=== PATIENT | female | born 1955 | race Caucasian/White ===

== ENCOUNTER 2022-06-13 19:40 | Inpatient (IN) ==
[2022-06-13] MEDS ORDERED: IOPAMIDOL 100 ML BOTTLE IV ONE (19:41)
[2022-06-13] MEDS ORDERED: 0.9 % SODIUM CHLORIDE 1,000 ML IV ONE (19:47)
[2022-06-13] MEDS ORDERED: KETOROLAC 30 MG/ML VIAL IV ONE (19:59)
[2022-06-13] MEDS ORDERED: fentaNYL 100 MCG/2 ML VIAL IV ONE (19:59)
[2022-06-13] MEDS ORDERED: ONDANSETRON 4 MG/2 ML VIAL IV ONE (19:59)
--- NOTE | 2022-06-13 20:02 | Emergency Department Note ---
Abdominal Pain HPI General Chief Complaint: Abdominal Pain Stated Complaint: abdominal pain Time Seen by Provider: 06/13/22 19:47 Source: patient Mode of arrival: ambulatory Limitations: no limitations History of Present Illness HPI Narrative: Narrative: Patient presents ED with complaints of abdominal pain x1 hour prior to arrival. Pain is rated 10/10. She points to her right upper quadrant area and states it radiates up into her chest. She reports associated nausea and vomiting. Denies fever, chills, jose a trauma, shortness of breath, heart palpitation, pain rating to her left arm or neck, hematemesis, melena, dyschezia, diarrhea, dysuria, hematuria, urinary frequency. Patient denies any other alleviating or aggravating factors. Related Data Previous Rx's Medication Instructions Recorded methocarbamol 500 mg tablet 1,000 mg PO QHS PRN Back spasm #60 05/07/21 tabs diltiazem HCl 180 mg capsule,24 180 mg PO QDAY #90 caps 02/20/22 hr,extended release fluoxetine 40 mg capsule 40 mg PO QDAY #90 caps 02/20/22 losartan 100 mg tablet 100 mg PO QDAY #90 tabs 02/20/22 Allergies Allergy/AdvReac Type Severity Reaction Status Date / Time egg Allergy Mild cough Verified 05/13/22 14:06 Penicillins Allergy Unknown rash Verified 05/13/22 14:06 Review of Systems ROS ROS Narrative: Narrative: All systems ED: reviewed and negative except as stated. [facility] Narrative Patient History Narrative: Narrative: Medical/Surgical/Family History All Active Problems (Updated 06/13/22 @ 22:57 by Greyson Fay DO) Pancreatitis (Acute) Toe pain, bilateral (Acute) Achilles tendinitis of right lower extremity (Acute) Trigger finger of right hand (Acute) Laceration (Acute) Conjunctivitis (Acute) Left-sided chest pain (Chronic) Shortness of breath (Chronic) Acute dyspnea (Chronic) Pleural effusion (Chronic) Pain and swelling of right lower extremity (Chronic) Localized swelling of right lower leg (Chronic) Vaping nicotine dependence, tobacco product (Chronic) History of smoking 30 or more pack years (Chronic) Hypersomnia (Chronic) Internal bleeding hemorrhoids (Chronic) Diarrhea (Chronic) Hair loss (Chronic) Joint pain (Chronic) Stroke (Chronic) Microscopic colitis (Chronic) GERD (gastroesophageal reflux disease) (Chronic) Cataracts, bilateral (Chronic) Atrial fibrillation (Chronic) Rectal bleeding (Chronic) Paroxysmal atrial fibrillation (Chronic) Pleural effusion (Chronic) Diastolic dysfunction (Chronic) 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) Hyperlipidemia (Chronic) Hypertension (Chronic) Depression (Chronic) Medical History Acute dyspnea Likely recurrent pleural effusion Chest x-ray and likely repeat Thora Work-up ongoing for etiology of pleural effusions Atrial fibrillation Cataracts, bilateral Chronic bilateral low back pain with sciatica Uses methocarbamol as needed Depression Diarrhea Chronic, intermittent Patient states most recent diagnosis regarding this is ulcerative colitis Declined steroids for treatment Avoiding lactose did help for the last 6 months, but simply reintroduce lactose to her diet, and has been having diarrhea for about 3 weeks Continue Imodium as needed. Avoid lactose. We will request GI records Diastolic dysfunction Diagnosed on 2017, per patient Well compensated GERD (gastroesophageal reflux disease) Hair loss TSH within normal limits in July. We will repeat. We will also check iron studies. Consider dermatology referral History of lipoma (~2000) History of smoking 30 or more pack years Hyperlipidemia Lipitor 10 mg daily Check lipid panel Hypersomnia Lives alone Sleep study ordered, but the sleep lab canceled until she sees Dr. Barlow in consultation Hypertension Internal bleeding hemorrhoids Recent CBC within normal limits Start Anusol suppositories Request GI records Joint pain Multiple joints. Does not sound inflammatory, more likely osteoarthritis. Left-sided chest pain Localized swelling of right lower leg Microscopic colitis Pain and swelling of right lower extremity Paroxysmal atrial fibrillation Pleural effusion Exudative Asymptomatic since recent thoracentesis Possibly secondary to ulcerative colitis Patient will report if dyspnea returns Pleural effusion 3 pleural effusions requiring thoracentesis in less than 3 months. Another Thora is scheduled for tomorrow. Exudative but no specific findings none pleural fluid studies Echocardiogram tomorrow Pulmonology referral, but patient not scheduled till January -pulmonology is recommending [id number], collagen vascular disease work-up, and fungal serologies which we will order. They then state referral to CT surgery for thoracoscopy may be indicated based on the results of the above labs. Rectal bleeding Shortness of breath Stroke Vaping nicotine dependence, tobacco product Encouraged to quit. She plans to do so. Surgical History History of cataract extraction (~2011) History of colonoscopy (10/04/14) 07/04/10 History of partial hysterectomy (~2000) History of repair of ACL (~2005) Cadaver graft Left Knee History of tonsillectomy (~1958) History of total knee replacement (TKR) (~2016) Right knee Family History Sister Breast cancer Half Sister Cervical cancer Half Sister High blood pressure Half Sister Diabetes mellitus, type II Father , Age 84 No problems noted. Mother , Age 93 No problems noted. Social History Smoking Status: Current every day smoker and Former smoker Alcohol Intake Frequency: does not drink Substance Use: marijuana Exam Narrative Narrative: Narrative: General Limitations: no limitations General appearance: Absent in distress ENT ENT: Present normal oropharynx and mucous membranes moist Chest Chest: Present normal inspection; Absent tenderness Respiratory Respiratory: Present normal lung sounds bilaterally; Absent respiratory distress Cardiovascular Cardiovascular: Present regular rate and normal rhythm Adbominal Abdominal: Present soft, tenderness and normal bowel sounds Expanded Abdominal Abdominal Tenderness: Present RUQ and epigastrium Extremities Extremities: Present normal capillary refill Back Back: Absent CVA tenderness (R) or CVA tenderness (L) Neurological Neurological: Present oriented X3 and normal gait Psychiatric Psychiatric: Present normal affect and normal mood Skin Skin: Present warm (WNL) and intact Course Course Course Narrative: Patient was evaluated for abdominal pain. Patient was also having chest pain so an EKG was obtained unremarkable. Troponin was negative ruling out DC. Patient having pain in right upper quadrant so an ultrasound was obtained and was negative for gallstones but did show some gallbladder sludge and some mild common bile duct dilatation. The pancreas was obscured. Labs revealed that patient had elevated amylase and lipase suggestive of pancreatitis. CT abdomen pelvis obtained with image of myself which did confirm pancreatitis and ruled out small bowel obstruction. Patient was bolused IV fluids and started on a bolus drip. She was given IV fentanyl and Toradol for her discomfort. She was also given some IV Zofran. Patient's pain greatly improved she became comfortable enough to where she was able to fall asleep. Due to patient's ongoing pain recommend the patient be admitted to the hospital. Case discussed with hospitalist who has agreed to admit the patient. Plan of care was discussed with patient she expressed verbal understanding and agreement Reevaluation(s) Reevaluation #1: Patient remains hemodynamically stable. No new complaints at this time Time: 21:00 Consultations Consultation #1: Case discussed with hospitalist, Dr. Delarosa, who has graciously excepted to admit patient to the hospital. Time: 23:03 Vital Signs Vital signs: Vital Signs Temperature 98.2 F 06/13/22 19:41 Pulse Rate 93 H 06/13/22 19:41 Respiratory Rate 17 06/13/22 19:41 Blood Pressure 180/135 06/13/22 19:41 Pulse Oximetry (%) 97 06/13/22 19:41 Oxygen Delivery Method 06/13/22 19:41 Temperature 98.2 F 06/13/22 19:41 Pulse Rate 81 06/13/22 22:20 Respiratory Rate 21 06/13/22 22:20 Blood Pressure 160/138 06/13/22 20:07 Pulse Oximetry (%) 94 06/13/22 22:20 Oxygen Delivery Method 06/13/22 19:41 MDM MDM Narrative Medical decision making narrative: Narrative: Differential Diagnosis Differential Diagnosis: Pancreatitis, hepatitis, cholecystitis, small bowel obstruction Medical Records Medical records reviewed: Yes I reviewed the patient's medical records. Lab Data Lab results reviewed: Yes I reviewed the patient's lab results. Result diagrams: 06/13/22 20:01 Labs: Lab Results 06/13/22 06/13/22 06/13/22 Range/Units 19:50 19:52 20:01 WBC 7.2 (4.5-11.0) K/mcL RBC 4.84 (3.59-5.38) M/mcL Hgb 14.5 (11.2-15.7) g/dL Hct 44.2 (34.1-44.9) % POC Hct 46.0 (36-48) MCV 91.3 (80.0-100.0) fL MCH 30.0 (26.0-34.0) pg MCHC 32.8 (31.0-36.0) g/dL RDW 13.5 (11.5-14.5) % Plt Count 283 (140-440) K/mcL MPV 10.7 (8.8-12.5) fL Immature Gran % (Auto) 0.1 (0.0-0.5) % Neut % (Auto) 56.9 (38.0-78.0) % Lymph % (Auto) 28.8 (15.5-49.0) % Frio % (Auto) 11.3 (1.0-12.0) % Eos % (Auto) 2.5 (0.0-7.0) % Baso % (Auto) 0.4 (0.0-2.0) % Lymph # (Auto) 2.06 (1.50-4.80) K/mcL Frio # (Auto) 0.81 (0.10-0.90) K/mcL Eos # (Auto) 0.18 (0.00-0.70) K/mcL Baso # (Auto) 0.03 (0.00-0.30) K/mcL Immature Gran # 0.01 (0.00-0.05) K/mcl Absolute Neutrophils 4.07 (1.80-8.00) K/mcL POC Sodium 139 (133-145) POC Potassium 3.9 (3.3-5.1) POC Chloride 108 (96-108) POC Total CO2 25.0 (22-30) POC BUN 24 H (6-20) POC Creatinine 1.0 (0.6-1.2) POC Glucose 100 (70-105) POC WB Ioniz Calcium 1.16 (1.16-1.32) Total Bilirubin (0.1-1.0) mg/dL Direct Bilirubin (0-0.3) mg/dL AST (<32) U/L ALT (<40) U/L Alkaline Phosphatase (39-117) U/L Total Protein (5.9-8.4) gm/dL Albumin (3.2-5.2) gm/dL Globulin (2.2-3.7) gm/dL Amylase (28-100) U/L POC Troponin I < 0.02 (0.00-0.08) 06/13/22 Range/Units 20:01 WBC (4.5-11.0) K/mcL RBC (3.59-5.38) M/mcL Hgb (11.2-15.7) g/dL Hct (34.1-44.9) % POC Hct (36-48) MCV (80.0-100.0) fL MCH (26.0-34.0) pg MCHC (31.0-36.0) g/dL RDW (11.5-14.5) % Plt Count (140-440) K/mcL MPV (8.8-12.5) fL Immature Gran % (Auto) (0.0-0.5) % Neut % (Auto) (38.0-78.0) % Lymph % (Auto) (15.5-49.0) % Frio % (Auto) (1.0-12.0) % Eos % (Auto) (0.0-7.0) % Baso % (Auto) (0.0-2.0) % Lymph # (Auto) (1.50-4.80) K/mcL Frio # (Auto) (0.10-0.90) K/mcL Eos # (Auto) (0.00-0.70) K/mcL Baso # (Auto) (0.00-0.30) K/mcL Immature Gran # (0.00-0.05) K/mcl Absolute Neutrophils (1.80-8.00) K/mcL POC Sodium (133-145) POC Potassium (3.3-5.1) POC Chloride (96-108) POC Total CO2 (22-30) POC BUN (6-20) POC Creatinine (0.6-1.2) POC Glucose (70-105) POC WB Ioniz Calcium (1.16-1.32) Total Bilirubin 0.2 (0.1-1.0) mg/dL Direct Bilirubin < 0.2 (0-0.3) mg/dL AST 19 (<32) U/L ALT 14 (<40) U/L Alkaline Phosphatase 88 (39-117) U/L Total Protein 7.4 (5.9-8.4) gm/dL Albumin 4.3 (3.2-5.2) gm/dL Globulin 3.1 (2.2-3.7) gm/dL Amylase 1205 H (28-100) U/L POC Troponin I (0.00-0.08) Radiology Data Radiology results reviewed: Yes I reviewed the patient's radiology results. Radiology results narrative: Right upper quadrant ultrasound obtained with image reviewed myself negative for gallstones but does have gallbladder sludge. CT abdomen pelvis obtained with image reviewed myself which shows a pancreatitis EKG Data EKG #1: EKG attestation: Yes I reviewed and interpreted this EKG. EKG shows normal: sinus rhythm Rhythm: NSR [place]/QRS: normal Heart block present: None ST segment elevation in: None ST segment depression in: None QTc: prolonged QRS morphology: Present normal Interpretation: no acute changes Core Measures AMI Core Measures Followed: Yes Discharge Plan Patient/Caregiver Discharge Instructions Pt seen by [employer] APPRENTICE/PA only: No Clinical Impression: Pancreatitis Patient Disposition: Xfer As Outpt/Obs ([facility]) Condition: Good Follow up with: Brannon Caicedo DO [Primary Care Provider] - Prescriptions: No Action methocarbamol 500 mg tablet 1,000 mg PO QHS PRN (Reason: Back spasm) Qty: 60 0RF diltiazem HCl 180 mg capsule,extended release 24 hr 180 mg PO QDAY Qty: 90 3RF fluoxetine 40 mg capsule 40 mg PO QDAY Qty: 90 3RF losartan 100 mg tablet 100 mg PO QDAY Qty: 90 3RF
[2022-06-13 20:06] LABS: POC Calcium, Ionized 1.16 (1.16-1.32); POC Potassium 3.9 (3.3-5.1)
[2022-06-13 20:37] LABS: Basophils # (Auto) 0.03 K/mcL (0.00-0.30); Basophils % (Auto) 0.4 % (0.0-2.0); Eosinophils # (Auto) 0.18 K/mcL (0.00-0.70); Eosinophils % (Auto) 2.5 % (0.0-7.0); Hematocrit 44.2 % (34.1-44.9); Hemoglobin 14.5 g/dL (11.2-15.7); Lymphocytes # (Auto) 2.06 K/mcL (1.50-4.80); Lymphocytes % (Auto) 28.8 % (15.5-49.0); Mean Cell Volume 91.3 fL (80.0-100.0); Mean Corpuscular HGB Conc 32.8 g/dL (31.0-36.0); Mean Platelet Volume 10.7 fL (8.8-12.5); Monocytes # (Auto) 0.81 K/mcL (0.10-0.90); Monocytes % (Auto) 11.3 % (1.0-12.0); Neutrophils % (Auto) 56.9 % (38.0-78.0); Platelet Count 283 K/mcL (140-440); RBC 4.84 M/mcL (3.59-5.38); Red Cell Distribution Width 13.5 % (11.5-14.5); WBC 7.2 K/mcL (4.5-11.0)
[2022-06-13 20:53] LABS: ALT/SGPT 14 U/L (<40); AST/SGOT 19 U/L (<32); Albumin 4.3 gm/dL (3.2-5.2); Alkaline Phosphatase 88 U/L (39-117); Amylase 1205 U/L (28-100); Bilirubin,Direct < 0.2 mg/dL (0-0.3); Bilirubin,Total 0.2 mg/dL (0.1-1.0); Globulin 3.1 gm/dL (2.2-3.7)
[2022-06-13] MEDS: 0.9 % SODIUM CHLORIDE 1,000 ML IV SCH (22:35)
[2022-06-13] MEDS ORDERED: NALOXONE HCL 0.4 MG/ML VIAL IV PRN (23:39)
[2022-06-13] MEDS ORDERED: PROMETHAZINE 25 MG/ML VIAL IM PRN (23:39)
[2022-06-14] MEDS: morphine 2 MG/ML VIAL IV PRN ×3 (00:40→05:54)
[2022-06-14] MEDS ORDERED: DILTIAZEM 180 MG CAP.XL.24H PO ONE ×2 (01:20→01:36)
[2022-06-14] MEDS ORDERED: LOSARTAN 50 MG TABLET PO ONE (01:21)
[2022-06-14] MEDS: ONDANSETRON 4 MG/2 ML VIAL IV PRN ×3 (03:15→12:01)
[2022-06-14] MEDS ORDERED: ONDANSETRON 4 MG/2 ML VIAL IV PRN (07:01)
[2022-06-14] MEDS: 0.9 % SODIUM CHLORIDE 1,000 ML IV SCH ×5 (07:04→22:00)
--- NOTE | 2022-06-14 08:12 | Ultrasound Report ---
History: Right upper quadrant pain and vomiting FINDINGS: The liver is normal in size. The parenchyma is mildly echogenic suggesting fatty infiltration. Doppler shows normal blood flow in the hepatic and portal veins. The pancreas is also echogenic and relatively plump. There is no evidence of a pancreatic mass. The tail is obscured by bowel gas. Within the head of the pancreas the duct measures 6.1 mm. There is small amount of sludge in the gallbladder. No stones are seen. The wall is 2.6 mm in thickness. Patient had diffuse abdominal pain which was not localized to the gallbladder. The extrahepatic bile ducts are dilated. Proximal common bile duct is 15 mm, the karin hepatis it is 14 mm and at the head of the pancreas isn't is 13 mm. There is a vague echogenic structure in the lumen of the distal common bile duct which is probably a stone. No ascites is present. Incidentally noted is a small pericardial effusion. The patient was technically difficult to scan due to repetitive episodes of vomiting and severe discomfort. IMPRESSION: Dilated bile ducts and dilated pancreatic duct. A stone in the distal common bile duct is suspected. Interpreted and Authenticated by: Yossi Dennis 06/14/22
--- NOTE | 2022-06-14 08:19 | Cat Scan Report ---
History: Right upper quadrant pain nausea and vomiting with dilated bile ducts and possible stone within the bile ducts seen on ultrasound TECHNIQUE: Following injection of intravenous nonionic contrast the patient was imaged from above the diaphragm through the symphysis pubis. Sagittal and coronal reformats were created. Radiation exposure was limited using dose reduction technology. FINDINGS: There are bands of dependent atelectasis in both lung bases. No pleural effusion is present. The liver is normal in size and homogeneous. There is mild dilatation of the intrahepatic ducts and moderate dilatation of the extrahepatic ducts. The common hepatic duct measures 1.6 cm. At the top of the head of the pancreas the common bile duct is 1.6 cm. In the head of the pancreas the duct measures 1.1 cm. At the level of the ampulla there is a small irregularly-shaped air-filled structure which appears to be contiguous with but separate from the duct. This is probably a collapsed duodenal diverticulum. No calcified stones are seen within the duct. Posterior to the proximal second portion the duodenum there is a pocket of fluid with small bubbles of air which measures 2 x 3 cm size. There is mild stranding of surrounding fat. This may be another duodenal diverticulum or a walled off ulcer. There is inflammation surrounding the duodenum from the bulb into the proximal fourth segment. The pancreas is inflamed with inflammation surrounding fat and the pancreatic duct is dilated within the head and neck. Measures up to 5 mm. There are no stones within the pancreatic duct within the parenchyma of the pancreas. The spleen, adrenals and kidneys are normal. There is no kidney stone or hydronephrosis. The gallbladder is somewhat distended but the wall does not appear thickened or inflamed. There are no calcified stones within the lumen. Aorta is normal in caliber. There are scattered calcified plaques. There is no ascites or abscess are present. Several diverticula are present in the sigmoid colon but there is no evidence of acute diverticulitis. Hysterectomy has been performed in either ovary is seen. There is a small fat-containing left inguinal hernia. IMPRESSION: Dilated intra and extrahepatic bile ducts. There is a small collapsed duodenal diverticulum contiguous with the ampulla. ERCP is recommended for further workup. Pancreatitis Inflamed duodenal diverticulum posterior to the second portion versus walled off peptic ulcer Interpreted and Authenticated by: Yossi Dennis 06/14/22
--- NOTE | 2022-06-14 08:47 | Internal Med History&Physical ---
HPI History of Present Illness Patient information: Note initiated : 06/14/22 at 8:45 am Service Date, if different from initiated Date: [] Patient: Gardenia Mike a 67 y/o F admitted on 06/14/22 for abdominal pain. Chief Complaint: [Abdominal pain] Chief complaint: Abdominal pain History of present illness: Ms. Mike is a 67 year old F with a past medical history significant for depression, hypertension, and paroxysmal atrial fibrillation not on anticoagulation who presents to the hospital with acute onset of epigastric/right upper quadrant abdominal pain. She states that she was resting at home when she developed sudden onset abdominal pain that she characterized as sharp. The pain was radiating to her back. She states that it was coming in waves. There were no alleviating or exacerbating factors. She states that the pain was 8 out of 10 in severity. On arrival to the ER, she was hemodynamically stable and afebrile. She was found to have an amylase of 1205. CT of the abdomen pelvis revealed dilated intra and extrahepatic bile ducts. There is a small collapsed duodenal diverticulum contiguous with the ampulla. ERCP is recommended for further work-up. The hospitalist service was asked admit the patient for further management and evaluation of her acute pancreatitis. Review of Systems All systems: reviewed and no additional remarkable complaints except as stated Constitutional Constitutional: Present as per HPI EENT Eyes: Present as per HPI; Absent blurry vision Cardiovascular Cardiovascular: Present as per HPI; Absent chest pain, dyspnea, dyspnea on exertion, leg edema or palpatations Respiratory Respiratory: Present as per HPI; Absent cough, dyspnea, dyspnea on exertion, wheezing or stridor Gastrointestinal Gastrointestinal: Present as per HPI and abdominal pain; Absent diarrhea, dysphagia, hematemesis, melena, nausea or vomiting Musculoskeletal Musculoskeletal: Present as per HPI; Absent joint swelling, limited range of motion, muscle cramps, muscle weakness or myalgias Integumentary Integumentary: Present as per HPI; Absent erythema, new lesions, rash or wounds Neurological Neurological: Present as per HPI; Absent abnormal gait, behavioral changes, focal weakness, headache(s), loss of vision, numbness, sensory deficit or syncope Endocrine Endocrine: Absent change in body appearance, fatigue or heat intolerance Hematologic/Lymphatic Hematologic/Lymphatic: Present as per HPI PFSH PFSH All Active Problems (Updated 06/13/22 @ 22:57 by Greyson Fay DO) Pancreatitis (Acute) Toe pain, bilateral (Acute) Achilles tendinitis of right lower extremity (Acute) Trigger finger of right hand (Acute) Laceration (Acute) Conjunctivitis (Acute) Left-sided chest pain (Chronic) Shortness of breath (Chronic) Acute dyspnea (Chronic) Pleural effusion (Chronic) Pain and swelling of right lower extremity (Chronic) Localized swelling of right lower leg (Chronic) Vaping nicotine dependence, tobacco product (Chronic) History of smoking 30 or more pack years (Chronic) Hypersomnia (Chronic) Internal bleeding hemorrhoids (Chronic) Diarrhea (Chronic) Hair loss (Chronic) Joint pain (Chronic) Stroke (Chronic) Microscopic colitis (Chronic) GERD (gastroesophageal reflux disease) (Chronic) Cataracts, bilateral (Chronic) Atrial fibrillation (Chronic) Rectal bleeding (Chronic) Paroxysmal atrial fibrillation (Chronic) Pleural effusion (Chronic) Diastolic dysfunction (Chronic) 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) Hyperlipidemia (Chronic) Hypertension (Chronic) Depression (Chronic) Medical History Acute dyspnea Likely recurrent pleural effusion Chest x-ray and likely repeat Thora Work-up ongoing for etiology of pleural effusions Atrial fibrillation Cataracts, bilateral Chronic bilateral low back pain with sciatica Uses methocarbamol as needed Depression Diarrhea Chronic, intermittent Patient states most recent diagnosis regarding this is ulcerative colitis Declined steroids for treatment Avoiding lactose did help for the last 6 months, but simply reintroduce lactose to her diet, and has been having diarrhea for about 3 weeks Continue Imodium as needed. Avoid lactose. We will request GI records Diastolic dysfunction Diagnosed on 2017, per patient Well compensated GERD (gastroesophageal reflux disease) Hair loss TSH within normal limits in July. We will repeat. We will also check iron studies. Consider dermatology referral History of lipoma (~2000) History of smoking 30 or more pack years Hyperlipidemia Lipitor 10 mg daily Check lipid panel Hypersomnia Lives alone Sleep study ordered, but the sleep lab canceled until she sees Dr. Barlow in consultation Hypertension Internal bleeding hemorrhoids Recent CBC within normal limits Start Anusol suppositories Request GI records Joint pain Multiple joints. Does not sound inflammatory, more likely osteoarthritis. Left-sided chest pain Localized swelling of right lower leg Microscopic colitis Pain and swelling of right lower extremity Paroxysmal atrial fibrillation Pleural effusion Exudative Asymptomatic since recent thoracentesis Possibly secondary to ulcerative colitis Patient will report if dyspnea returns Pleural effusion 3 pleural effusions requiring thoracentesis in less than 3 months. Another Thora is scheduled for tomorrow. Exudative but no specific findings none pleural fluid studies Echocardiogram tomorrow Pulmonology referral, but patient not scheduled till January -pulmonology is recommending [id number], collagen vascular disease work-up, and fungal serologies which we will order. They then state referral to CT surgery for thoracoscopy may be indicated based on the results of the above labs. Rectal bleeding Shortness of breath Stroke Vaping nicotine dependence, tobacco product Encouraged to quit. She plans to do so. Surgical History History of cataract extraction (~2011) History of colonoscopy (10/04/14) 07/04/10 History of partial hysterectomy (~2000) History of repair of ACL (~2005) Cadaver graft Left Knee History of tonsillectomy (~1958) History of total knee replacement (TKR) (~2016) Right knee Family History Sister Breast cancer Half Sister Cervical cancer Half Sister High blood pressure Half Sister Diabetes mellitus, type II Father , Age 84 No problems noted. Mother , Age 93 No problems noted. Social History marital status: occupational status: employed occupation: [employer] smoking status: Former smoker pack-years: 35 and Smokeless tobacco counseling given: provider counseling alcohol intake frequency: does not drink substance use type: marijuana MEDS/ALLERGIES Home Medications and Allergies Home Medications Medication Instructions Recorded Confirmed Type methocarbamol 500 mg tablet 1,000 mg PO QHS PRN Back spasm #60 05/07/21 06/13/22 Rx tabs fluoxetine 40 mg capsule 40 mg PO QDAY #90 caps 02/20/22 06/13/22 Rx cetirizine 10 mg capsule (Zyrtec) 10 mg PO QDAY 06/13/22 06/13/22 History diltiazem HCl 180 mg capsule,24 180 mg PO HS 06/14/22 06/14/22 History hr,extended release losartan 100 mg tablet 100 mg PO HS 06/14/22 06/14/22 History Allergies Allergy/AdvReac Type Severity Reaction Status Date / Time egg Allergy Mild cough Verified 05/13/22 14:06 Penicillins Allergy Unknown rash Verified 05/13/22 14:06 EXAM Constitutional Vitals: Temp Pulse Resp BP Pulse Ox O2 Del Method 98.6 F 89 16 148/72 94 06/14/22 07:07 06/14/22 03:27 06/14/22 07:07 06/14/22 07:07 06/14/22 07:07 06/14/22 07:07 General appearance: average body habitus Head Head exam: Present atraumatic, normal inspection and normocephalic Eye Eye exam: Present EOMI, normal appearance and PERRL; Absent conjunctival injection ENT ENT exam: Present mucous membranes dry and normal exam Neck Neck exam: Present full ROM; Absent lymphadenopathy Respiratory Respiratory exam: Present normal respiratory exam and CTAB; Absent decreased breath sounds, respiratory distress or wheezes Cardiovascular Cardiovascular exam: Present normal rate and rhythm and RRR; Absent JVD GI/Abdominal GI/Abdominal exam: Present normal bowel sounds, soft, guarding and tenderness; Absent diminished bowel sounds, distended, mass or rebound Neurological Exam Neurological exam: Present alert, CN II-XII intact and oriented X3 Psychiatric Psychiatric exam: Present normal affect and normal mood Skin Skin exam: Present intact and warm; Absent erythema, pallor, petechiae or rash DATA Data Completed and Pending Labs: Labs from last 24 hours 06/13/22 06/13/22 06/13/22 20:01 20:01 19:52 WBC 7.2 RBC 4.84 Hgb 14.5 Hct 44.2 POC Hct MCV 91.3 MCH 30.0 MCHC 32.8 RDW 13.5 Plt Count 283 MPV 10.7 Immature Gran % (Auto) 0.1 Neut % (Auto) 56.9 Lymph % (Auto) 28.8 [place] % (Auto) 11.3 Eos % (Auto) 2.5 Baso % (Auto) 0.4 Lymph # (Auto) 2.06 [place] # (Auto) 0.81 Eos # (Auto) 0.18 Baso # (Auto) 0.03 Immature Gran # 0.01 Absolute Neutrophils 4.07 POC Sodium POC Potassium POC Chloride POC Total CO2 POC BUN POC Creatinine POC Glucose POC WB Ioniz Calcium Total Bilirubin 0.2 Direct Bilirubin < 0.2 AST 19 ALT 14 Alkaline Phosphatase 88 Total Protein 7.4 Albumin 4.3 Globulin 3.1 Amylase 1205 H Lipase Pending POC Troponin I < 0.02 06/13/22 19:50 WBC RBC Hgb Hct POC Hct 46.0 MCV MCH MCHC RDW Plt Count MPV Immature Gran % (Auto) Neut % (Auto) Lymph % (Auto) [place] % (Auto) Eos % (Auto) Baso % (Auto) Lymph # (Auto) [place] # (Auto) Eos # (Auto) Baso # (Auto) Immature Gran # Absolute Neutrophils POC Sodium 139 POC Potassium 3.9 POC Chloride 108 POC Total CO2 25.0 POC BUN 24 H POC Creatinine 1.0 POC Glucose 100 POC WB Ioniz Calcium 1.16 Total Bilirubin Direct Bilirubin AST ALT Alkaline Phosphatase Total Protein Albumin Globulin Amylase Lipase POC Troponin I A/P Assessment and plan (1) Pancreatitis: Status: Acute (2) Depression: Status: Chronic Qualifiers: Depression Type: major depressive disorder Major depression recurrence: recurrent Active/Remission status: in full remission Qualified Code(s): F33.42 - Major depressive disorder, recurrent, in full remission (3) Hypertension: Status: Chronic Qualifiers: Hypertension type: essential hypertension Qualified Code(s): I10 - Essential (primary) hypertension (4) Paroxysmal atrial fibrillation: Status: Chronic Narrative A/P Narrative: The patient presents with acute pancreatitis. Her clinical exam, lab values, a nd imaging are consistent. Differential diagnosis includes gallstones, alcoholism, and hypertriglyceridemia. Autoimmune is unlikely. The patient denies history of alcohol abuse. Imaging may be concerning for stones or biliary sludge. GI consult will be obtained for consideration of ERCP. Patient will remain n.p.o., continue IV fluids, and narcotic analgesics for pain control. Time Spent With Patient Time: Total time spent is greater than 50% in coordination of care (as documented) at patient's floor/unit and/or counseling patient: Initial: Total time with patient: 75 - 90 minutes
[2022-06-14] MEDS: DOCUSATE SODIUM 100 MG CAPSULE PO SCH ×2 (09:24→20:53)
[2022-06-14] MEDS: ENOXAPARIN 40 MG/0.4 ML SYRINGE SQ SCH (09:40)
[2022-06-14] MEDS: morphine 4 MG/ML VIAL IV PRN ×2 (09:41→16:56)
--- NOTE | 2022-06-14 09:55 | EKG ---
[facility] Test Date: 2022-06-13 Pat Name: Gardenia Mike Department: ED Room: Gender: Female [employer]: HS : 1955 Requested By: Greyson Fay Order Number: [id number] Reading MD: Martin Good Measurements Intervals [place] Rate: 98 P: 56 CT: 135 QRS: 60 QRSD: 81 T: 50 QT: 381 QTc: 487 Interpretive Statements Sinus rhythm Borderline T wave abnormalities Borderline prolonged QT interval Electronically Signed On 06-14-2022 9:54:59 PST by Martin Good /store/M0/[id number]
[2022-06-14 10:09] LABS: Triglycerides 87 mg/dL (<150)
--- NOTE | 2022-06-14 10:43 | Internal Medicine Consult Note ---
HPI Date of Consult Consult Date: 06/14/22 Requesting physician: Reid Delarosa Primary Care Provider: Brannon Caicedo DO Consult Narrative Chief complaint: pancreatitis History of present illness: 67 year old white female with history of tobacco use, afib and social ETOH (2-3 wine 2-3 times a week) who presents for evaluation of acute pancreatitis. She developed influenza followed by COVID in May and has been fatigued. She planned to rest at home 6 days ago, but suddenly developed RUQ pain that radiated up into her chest and back. Pain became so severe, she went to the ER for evaluation where amylase 1205, LFTs normal, and CT showed CBD 16mm, PD 11mm with possible duodenal diverticulum. No definite stone was seen. Triglycerides, calcium normal. We are asked to consult for possible ERCP. cc:: CC: Reid Delarosa MD Review of Systems All systems: reviewed and no additional remarkable complaints except as stated Review of systems: History of idiopathic pleural effusion. Has pericardial effusion on recent imaging, perhaps due to recent viral illnesses. PFSH PFSH All Active Problems (Updated 06/13/22 @ 22:57 by Greyson Fay DO) Pancreatitis (Acute) Toe pain, bilateral (Acute) Achilles tendinitis of right lower extremity (Acute) Trigger finger of right hand (Acute) Laceration (Acute) Conjunctivitis (Acute) Left-sided chest pain (Chronic) Shortness of breath (Chronic) Acute dyspnea (Chronic) Pleural effusion (Chronic) Pain and swelling of right lower extremity (Chronic) Localized swelling of right lower leg (Chronic) Vaping nicotine dependence, tobacco product (Chronic) History of smoking 30 or more pack years (Chronic) Hypersomnia (Chronic) Internal bleeding hemorrhoids (Chronic) Diarrhea (Chronic) Hair loss (Chronic) Joint pain (Chronic) Stroke (Chronic) Microscopic colitis (Chronic) GERD (gastroesophageal reflux disease) (Chronic) Cataracts, bilateral (Chronic) Atrial fibrillation (Chronic) Rectal bleeding (Chronic) Paroxysmal atrial fibrillation (Chronic) Pleural effusion (Chronic) Diastolic dysfunction (Chronic) 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) Hyperlipidemia (Chronic) Hypertension (Chronic) Depression (Chronic) Medical History Acute dyspnea Likely recurrent pleural effusion Chest x-ray and likely repeat Thora Work-up ongoing for etiology of pleural effusions Atrial fibrillation Cataracts, bilateral Chronic bilateral low back pain with sciatica Uses methocarbamol as needed Depression Diarrhea Chronic, intermittent Patient states most recent diagnosis regarding this is ulcerative colitis Declined steroids for treatment Avoiding lactose did help for the last 6 months, but simply reintroduce lactose to her diet, and has been having diarrhea for about 3 weeks Continue Imodium as needed. Avoid lactose. We will request GI records Diastolic dysfunction Diagnosed on 2017, per patient Well compensated GERD (gastroesophageal reflux disease) Hair loss TSH within normal limits in July. We will repeat. We will also check iron studies. Consider dermatology referral History of lipoma (~2000) History of smoking 30 or more pack years Hyperlipidemia Lipitor 10 mg daily Check lipid panel Hypersomnia Lives alone Sleep study ordered, but the sleep lab canceled until she sees Dr. Barlow in consultation Hypertension Internal bleeding hemorrhoids Recent CBC within normal limits Start Anusol suppositories Request GI records Joint pain Multiple joints. Does not sound inflammatory, more likely osteoarthritis. Left-sided chest pain Localized swelling of right lower leg Microscopic colitis Pain and swelling of right lower extremity Paroxysmal atrial fibrillation Pleural effusion Exudative Asymptomatic since recent thoracentesis Possibly secondary to ulcerative colitis Patient will report if dyspnea returns Pleural effusion 3 pleural effusions requiring thoracentesis in less than 3 months. Another Thora is scheduled for tomorrow. Exudative but no specific findings none pleural fluid studies Echocardiogram tomorrow Pulmonology referral, but patient not scheduled till January -pulmonology is recommending [id number], collagen vascular disease work-up, and fungal serologies which we will order. They then state referral to CT surgery for thoracoscopy may be indicated based on the results of the above labs. Rectal bleeding Shortness of breath Stroke Vaping nicotine dependence, tobacco product Encouraged to quit. She plans to do so. Surgical History History of cataract extraction (~2011) History of colonoscopy (10/04/14) 07/04/10 History of partial hysterectomy (~2000) History of repair of ACL (~2005) Cadaver graft Left Knee History of tonsillectomy (~1958) History of total knee replacement (TKR) (~2016) Right knee Family History Sister Breast cancer Half Sister Cervical cancer Half Sister High blood pressure Half Sister Diabetes mellitus, type II Father , Age 84 No problems noted. Mother , Age 93 No problems noted. Social History marital status: occupational status: employed occupation: [employer] smoking status: Former smoker pack-years: 35 and Smokeless tobacco counseling given: provider counseling alcohol intake frequency: does not drink substance use type: marijuana MEDS/ALLERGIES Home Medications and Allergies Home Medications Medication Instructions Recorded Confirmed Type methocarbamol 500 mg tablet 1,000 mg PO QHS PRN Back spasm #60 05/07/21 06/13/22 Rx tabs fluoxetine 40 mg capsule 40 mg PO QDAY #90 caps 02/20/22 06/13/22 Rx cetirizine 10 mg capsule (Zyrtec) 10 mg PO QDAY 06/13/22 06/13/22 History diltiazem HCl 180 mg capsule,24 180 mg PO HS 06/14/22 06/14/22 History hr,extended release losartan 100 mg tablet 100 mg PO HS 06/14/22 06/14/22 History Allergies Allergy/AdvReac Type Severity Reaction Status Date / Time egg Allergy Mild cough Verified 05/13/22 14:06 Penicillins Allergy Unknown rash Verified 05/13/22 14:06 EXAM Constitutional Vitals: Temp Pulse Resp BP Pulse Ox O2 Del Method 98.6 F 89 16 148/72 94 06/14/22 07:07 06/14/22 03:27 06/14/22 07:07 06/14/22 07:07 06/14/22 07:07 06/14/22 07:07 General appearance: cooperative, mild distress and obese Head Head exam: Present atraumatic and normal inspection Eye Eye exam: Present normal appearance ENT ENT exam: Present mucous membranes moist Neck Neck exam: Present normal inspection Respiratory Respiratory exam: Present normal respiratory exam and CTAB; Absent accessory muscle use Cardiovascular Cardiovascular exam: Present normal rate and rhythm; Absent rubs or systolic murmur GI/Abdominal GI/Abdominal exam: Present normal bowel sounds, soft and tenderness Additional comments: RUQ Neurological Exam Neurological exam: Present alert and oriented X3 Psychiatric Psychiatric exam: Present normal affect and normal mood Skin Skin exam: Present dry, normal color and warm DATA Data Completed and Pending Labs: Labs from last 24 hours 06/14/22 06/13/22 06/13/22 09:04 20:01 20:01 WBC 7.2 RBC 4.84 Hgb 14.5 Hct 44.2 POC Hct MCV 91.3 MCH 30.0 MCHC 32.8 RDW 13.5 Plt Count 283 MPV 10.7 Immature Gran % (Auto) 0.1 Neut % (Auto) 56.9 Lymph % (Auto) 28.8 [place] % (Auto) 11.3 Eos % (Auto) 2.5 Baso % (Auto) 0.4 Lymph # (Auto) 2.06 [place] # (Auto) 0.81 Eos # (Auto) 0.18 Baso # (Auto) 0.03 Immature Gran # 0.01 Absolute Neutrophils 4.07 POC Sodium POC Potassium POC Chloride POC Total CO2 POC BUN POC Creatinine POC Glucose POC WB Ioniz Calcium Total Bilirubin 0.2 Direct Bilirubin < 0.2 AST 19 ALT 14 Alkaline Phosphatase 88 Total Protein 7.4 Albumin 4.3 Globulin 3.1 Triglycerides 87 Amylase 1205 H Lipase Pending POC Troponin I 06/13/22 06/13/22 19:52 19:50 WBC RBC Hgb Hct POC Hct 46.0 MCV MCH MCHC RDW Plt Count MPV Immature Gran % (Auto) Neut % (Auto) Lymph % (Auto) [place] % (Auto) Eos % (Auto) Baso % (Auto) Lymph # (Auto) [place] # (Auto) Eos # (Auto) Baso # (Auto) Immature Gran # Absolute Neutrophils POC Sodium 139 POC Potassium 3.9 POC Chloride 108 POC Total CO2 25.0 POC BUN 24 H POC Creatinine 1.0 POC Glucose 100 POC WB Ioniz Calcium 1.16 Total Bilirubin Direct Bilirubin AST ALT Alkaline Phosphatase Total Protein Albumin Globulin Triglycerides Amylase Lipase POC Troponin I < 0.02 A/P Assessment and plan (1) Pancreatitis: Assessment and plan: I reviewed her case with Dr. Horan. In light of her pancreatic duct and biliary duct dilatation and no definite stone seen on imaging, we are recommending tertiary referral for EUS. We discussed this with the patient. Occult pancreatic head mass is on the differential. Status: Acute Time Spent With Patient Time: Total time spent is greater than 50% in coordination of care (as documented) at patient's floor/unit and/or counseling patient: Initial: Total time with patient: Less than 40 minutes
[2022-06-14] MEDS: KETOROLAC 30 MG/ML VIAL IV PRN (12:11)
[2022-06-14] MEDS: 0.9 % SODIUM CHLORIDE 10 ML SYRINGE IV SCH ×2 (12:58→20:53)
[2022-06-14] MEDS: DILTIAZEM 180 MG CAP.XL.24H PO SCH (20:53)
[2022-06-14] MEDS: SENNOSIDES 1 TABLET PO SCH (20:53)
[2022-06-14] MEDS: LOSARTAN 50 MG TABLET PO SCH (20:53)
[2022-06-15] MEDS: KETOROLAC 30 MG/ML VIAL IV PRN ×2 (00:19→16:04)
[2022-06-15] MEDS: 0.9 % SODIUM CHLORIDE 1,000 ML IV SCH ×4 (03:03→15:45)
[2022-06-15] MEDS: 0.9 % SODIUM CHLORIDE 10 ML SYRINGE IV SCH ×3 (06:24→20:39)
[2022-06-15 06:55] LABS: Basophils # (Auto) 0.02 K/mcL (0.00-0.30); Basophils % (Auto) 0.4 % (0.0-2.0); Eosinophils # (Auto) 0.12 K/mcL (0.00-0.70); Eosinophils % (Auto) 2.1 % (0.0-7.0); Hematocrit 38.4 % (34.1-44.9); Hemoglobin 12.5 g/dL (11.2-15.7); Lymphocytes # (Auto) 0.56 K/mcL (1.50-4.80); Lymphocytes % (Auto) 9.9 % (15.5-49.0); Mean Cell Volume 92.5 fL (80.0-100.0); Mean Corpuscular HGB Conc 32.6 g/dL (31.0-36.0); Mean Platelet Volume 10.3 fL (8.8-12.5); Monocytes # (Auto) 0.74 K/mcL (0.10-0.90); Monocytes % (Auto) 13.1 % (1.0-12.0); Platelet Count 180 K/mcL (140-440); RBC 4.15 M/mcL (3.59-5.38); Red Cell Distribution Width 13.4 % (11.5-14.5); WBC 5.6 K/mcL (4.5-11.0)
[2022-06-15 07:09] LABS: Blood Urea Nitrogen 5 mg/dL (8-23); Calcium 8.2 mg/dL (8.6-10.4); Carbon Dioxide 19 mmol/L (22-30); Chloride 105 mmol/L (96-108); Glomerular Filtration Rate 109; Glucose 95 mg/dL (70-105)
[2022-06-15] MEDS: ACETAMINOPHEN 325 MG TABLET PO PRN (07:51)
[2022-06-15] MEDS: ENOXAPARIN 40 MG/0.4 ML SYRINGE SQ SCH (09:03)
[2022-06-15] MEDS: DOCUSATE SODIUM 100 MG CAPSULE PO SCH ×2 (09:03→20:33)
[2022-06-15] MEDS: FLUoxetine HCL 20 MG CAPSULE PO SCH (09:03)
--- NOTE | 2022-06-15 16:02 | Internal Med Progress Note ---
SUBJECTIVE Subjective Patient information: Note initiated : 06/15/22 at 3:50 pm Service Date, if different from initiated Date: [] Patient: Gardenia Mike 67 y/o F admitted on 06/14/22 for abdominal pain. Chief Complaint: [] Interval history: 06/15: Patient is complaining of 6 out of 10, intermittent, pressure-like pain localized in the right upper quadrant abdomen. She denies any nausea or vomiting. Lipase 581. Pending hospital to hospital transfer for GI specialist consultation for potential EUS endoscopic ultrasound procedures to figure out source of biliary obstructions. Start the patient on clear liquid diet and will decrease the rate of the normal saline from 200 cc/h to 75 cc/h. Continue to offer narcotics as needed symptoms control. Constitutional Vitals: Vital Signs Temp Pulse Resp BP Pulse Ox O2 Del Method 36.7 C 72 17 143/76 96 06/15/22 03:17 06/15/22 12:00 06/15/22 12:00 06/15/22 12:00 06/15/22 12:00 06/15/22 12:00 Period Temp Pulse Resp BP Sys/Robles Pulse Ox O2 Del Method O2 Flow Rate Last 24 Hr 36.4 C-37.2 C 72-76 16-18 117-166/64-87 91-96 Room Air-Room Air Intake and Output 06/15/22 06/15/22 06/15/22 03:59 11:59 19:59 Intake Total 1637 063 9998 Output Total 1300 Balance 547 732 6038 Weight 89.902 kg 89.902 kg Patient Weight 06/16/22 03:59 Weight 89.902 kg Intake & Output: Intake & Output 06/15/22 06/15/22 06/15/22 03:59 11:59 19:59 Intake Total 6862 699 2744 Output Total 1300 Balance 183 760 1154 Weight 89.902 kg 89.902 kg Intake: IV 2897 259 0292 Sodium Chloride 0.9% 1,000 ml @ 1540 147 2024 200 mls/hr IV .Q5H [facility] Rx#: [id number] Output: Void Amount 1300 Other: Urine Appearance Clear Clear Urine Color Yellow Yellow Pale Urine Odor Normal Normal Head Head exam: Present atraumatic and normal inspection Eye Eye exam: Present normal appearance ENT ENT exam: Present mucous membranes moist, normal exam and normal external ear exam Neck Neck exam: Present normal inspection Respiratory Respiratory exam: Present normal respiratory exam Cardiovascular Cardiovascular exam: Present normal rate and rhythm GI/Abdominal GI/Abdominal exam: Present normal bowel sounds and tenderness Back Exam Back exam: Present normal inspection Neurological Exam Neurological exam: Present alert and oriented X3 Skin Skin exam: Present intact and warm OBJ DATA Labs CBC & Chem 7: 06/15/22 05:34 06/15/22 05:34 Labs: Abnormal Lab Results 06/15/22 06/15/22 06/15/22 05:34 05:34 05:34 Lymph % (Auto) 9.9 L [place] % (Auto) 13.1 H Lymph # (Auto) 0.56 L Sodium 132 L Carbon Dioxide 19 L POC BUN BUN 5 L Creatinine 0.4 L Calcium 8.2 L Amylase Lipase 581 H 06/13/22 06/13/22 20:01 19:50 Lymph % (Auto) [place] % (Auto) Lymph # (Auto) Sodium Carbon Dioxide POC BUN 24 H BUN Creatinine Calcium Amylase 1205 H Lipase Meds: Medications Acetaminophen (Acetaminophen 325 Mg Tablet) 650 mg PO Q6HP PRN; Protocol PRN Reason: Per Pain Protocol/Fever > 101 Last Admin: 06/15/22 07:51 Dose: 650 mg Diltiazem HCl (Diltiazem 180 Mg Cap.Xl.24h) 180 mg PO HS [facility] Last Admin: 06/14/22 20:53 Dose: 180 mg Docusate Sodium (Docusate Sodium 100 Mg Capsule) 100 mg PO BID [facility] Last Admin: 06/15/22 09:03 Dose: 100 mg Enoxaparin Sodium (Enoxaparin 40 Mg/0.4 Ml Syringe) 40 mg SQ DAILY [facility] Last Admin: 06/15/22 09:03 Dose: 40 mg Fluoxetine HCl (Fluoxetine Hcl 20 Mg Capsule) 40 mg PO QDAY [facility] Last Admin: 06/15/22 09:03 Dose: 40 mg Sodium Chloride (Sodium Chloride 0.9%) 1,000 mls @ 75 mls/hr IV .[id number] [facility] Last Admin: 06/15/22 15:45 Dose: 75 mls/hr Ketorolac Tromethamine (Ketorolac 30 Mg/Ml Vial) 30 mg IV Q6HP PRN; Protocol PRN Reason: Per Pain Protocol Stop: 06/16/22 07:02 Last Admin: 06/15/22 00:19 Dose: 30 mg Losartan Potassium (Losartan 50 Mg Tablet) 100 mg PO [facility] Last Admin: 06/14/22 20:53 Dose: 100 mg Morphine Sulfate (Morphine 4 Mg/Ml Vial) 4 mg IV Q4HP PRN; Protocol PRN Reason: Per Pain Protocol Last Admin: 06/14/22 16:56 Dose: 4 mg Naloxone HCl (Naloxone Hcl 0.4 Mg/Ml Vial) 0.1 mg IV Q2MIN PRN PRN Reason: Opiate Reversal Ondansetron HCl (Ondansetron 4 Mg/2 Ml Vial) 4 mg IV Q4HP PRN; Protocol PRN Reason: Nausea And Vomiting Last Admin: 06/14/22 12:01 Dose: 4 mg Ondansetron HCl (Ondansetron 4 Mg/2 Ml Vial) 4 mg IV Q6HP PRN PRN Reason: Nausea And Vomiting Last Admin: 06/14/22 17:02 Dose: 4 mg Oxycodone/Acetaminophen (Oxycodone/Apap 5/325mg Tablet) 1 tab PO Q4HP PRN; Protocol PRN Reason: Per Pain Protocol Promethazine HCl (Promethazine 25 Mg/Ml Vial) 12.5 mg IM Q6HP PRN; Protocol PRN Reason: Nausea And Vomiting Senna (Sennosides 1 Tablet) 2 tab PO [facility] Last Admin: 06/14/22 20:53 Dose: 2 tab Sodium Chloride (0.9 % Sodium Chloride 10 Ml Syringe) 10 ml IV Q8 [facility] Last Admin: 06/15/22 12:46 Dose: Not Given A/P Assessment and plan (1) Pancreatitis: Status: Acute (2) Paroxysmal atrial fibrillation: Status: Chronic (3) Hypertension: Status: Chronic Qualifiers: Hypertension type: essential hypertension Qualified Code(s): I10 - Essential (primary) hypertension (4) Depression: Status: Chronic Qualifiers: Depression Type: major depressive disorder Major depression recurrence: recurrent Active/Remission status: in full remission Qualified Code(s): F33.42 - Major depressive disorder, recurrent, in full remission Narrative A/P Narrative: Assessment and Plans: 1. Acute pancreatitis: Inpatient med surg; pending hospital to hospital transfer for GI specialist consultations and potential endoscopic ultrasound to evaluate any source of obstructions causing dilated intra and extrahepatic bile ducts. Clear liquid diet NS@75cc/hr Zofran Phenergan Percocet Morphine Toradol CMP and lipase level 2. Essential hypertension: Currently normotensive Symptoms control as above Diltiazem Losartan 3. Depression: Fluoxetine 4. Proximal atrial fibrillation: Diltiazem No therapeutic anticoagulations for possible impending surgery GI ppx: not currently indicated DVT ppx: Lovenox Code status: Full Prognosis: guarded Disposition: inpatient med surg; pending hospital transfer to potential EUS Time Spent With Patient Time: Total time spent is greater than 50% in coordination of care (as documented) at patient's floor/unit and/or counseling patient: Subsequent: Total time with patient: 35 - 49 minutes
[2022-06-15] MEDS: SENNOSIDES 1 TABLET PO SCH (20:32)
[2022-06-15] MEDS: DILTIAZEM 180 MG CAP.XL.24H PO SCH (20:32)
[2022-06-15] MEDS: LOSARTAN 50 MG TABLET PO SCH (20:33)
[2022-06-16] MEDS: oxyCODONE/APAP 5/325MG TABLET PO PRN ×2 (02:42→12:45)
[2022-06-16] MEDS: 0.9 % SODIUM CHLORIDE 10 ML SYRINGE IV SCH ×3 (06:33→21:27)
[2022-06-16] MEDS: 0.9 % SODIUM CHLORIDE 1,000 ML IV SCH ×2 (07:27→11:40)
[2022-06-16] MEDS ORDERED: MELATONIN 3 MG TABLET PO PRN ×2 (09:01→18:32)
--- NOTE | 2022-06-16 09:05 | Internal Med Progress Note ---
SUBJECTIVE Subjective Patient information: Note initiated : 06/16/22 at 9:02 am Service Date, if different from initiated Date: [] Patient: Gardenia Mike 67 y/o F admitted on 06/14/22 for abdominal pain. Chief Complaint: [] Interval history: 06/15: Patient is complaining of 6 out of 10, intermittent, pressure-like pain localized in the right upper quadrant abdomen. She denies any nausea or vomiting. Lipase 581. Pending hospital to hospital transfer for GI specialist consultation for potential EUS endoscopic ultrasound procedures to figure out source of biliary obstructions. Start the patient on clear liquid diet and will decrease the rate of the normal saline from 200 cc/h to 75 cc/h. Continue to offer narcotics as needed symptoms control. 06/16: Tolerating clear liquid diet. c/o 3/10 intermittent, pressure-like pain localized in the right upper quadrant abdomen. She denies any nausea or vomiting. Still pending hospital to hospital transfer. Continue NS@75cc/hr. Continue to offer narcotics/antiemetics as needed symptoms control. Constitutional Vitals: Vital Signs Temp Pulse Resp BP Pulse Ox O2 Del Method 37.1 C 79 17 134/79 95 06/16/22 06:54 06/16/22 06:54 06/16/22 06:54 06/16/22 06:54 06/16/22 06:54 06/16/22 06:54 Period Temp Pulse Resp BP Sys/Robles Pulse Ox O2 Del Method O2 Flow Rate Last 24 Hr 36.8 C-37.4 C 72-82 16-18 122-143/68-79 93-96 Room Air-Room Air Intake and Output 06/15/22 06/16/22 06/16/22 19:59 03:59 11:59 Intake Total 2029 1590 Output Total 1100 900 450 Balance 930 -900 1140 Weight 90.407 kg Intake & Output: Intake & Output 06/15/22 06/16/22 06/16/22 19:59 03:59 11:59 Intake Total 2029 1590 Output Total 1100 900 450 Balance 930 -900 1140 Weight 90.407 kg Intake: IV 2000 1000 Sodium Chloride 0.9% 1,000 ml @ 2000 1000 75 mls/hr IV .[id number] [facility] Rx#: [id number] Oral 30 590 Output: Void Amount 1100 900 450 Other: Feeding Ability Independent Urine Appearance Clear Clear Urine Color Yellow Yellow Yellow Pale Pale Urine Odor Normal Normal Stool Size Large Stool Color Brown Stool Consistency Normal for Patient # Voids 2 # Bowel Movements 1 # [place] 0 Head Head exam: Present atraumatic and normal inspection Eye Eye exam: Present normal appearance ENT ENT exam: Present mucous membranes moist, normal exam and normal external ear e xam Neck Neck exam: Present normal inspection Respiratory Respiratory exam: Present normal respiratory exam Cardiovascular Cardiovascular exam: Present irregular rhythm GI/Abdominal GI/Abdominal exam: Present guarding and tenderness Back Exam Back exam: Present normal inspection Neurological Exam Neurological exam: Present alert and oriented X3 Skin Skin exam: Present intact and warm OBJ DATA Labs CBC & Chem 7: 06/15/22 05:34 06/15/22 05:34 Labs: Abnormal Lab Results 06/15/22 06/15/22 06/15/22 05:34 05:34 05:34 Lymph % (Auto) 9.9 L [place] % (Auto) 13.1 H Lymph # (Auto) 0.56 L Sodium 132 L Carbon Dioxide 19 L POC BUN BUN 5 L Creatinine 0.4 L Calcium 8.2 L Amylase Lipase 581 H 06/13/22 06/13/22 20:01 19:50 Lymph % (Auto) [place] % (Auto) Lymph # (Auto) Sodium Carbon Dioxide POC BUN 24 H BUN Creatinine Calcium Amylase 1205 H Lipase Meds: Medications Acetaminophen (Acetaminophen 325 Mg Tablet) 650 mg PO Q6HP PRN; Protocol PRN Reason: Per Pain Protocol/Fever > 101 Last Admin: 06/15/22 07:51 Dose: 650 mg Diltiazem HCl (Diltiazem 180 Mg Cap.Xl.24h) 180 mg PO HS [facility] Last Admin: 06/15/22 20:32 Dose: 180 mg Docusate Sodium (Docusate Sodium 100 Mg Capsule) 100 mg PO BID [facility] Last Admin: 06/15/22 20:33 Dose: 100 mg Enoxaparin Sodium (Enoxaparin 40 Mg/0.4 Ml Syringe) 40 mg SQ DAILY [facility] Last Admin: 06/15/22 09:03 Dose: 40 mg Fluoxetine HCl (Fluoxetine Hcl 20 Mg Capsule) 40 mg PO QDAY [facility] Last Admin: 06/15/22 09:03 Dose: 40 mg Sodium Chloride (Sodium Chloride 0.9%) 1,000 mls @ 75 mls/hr IV .[id number] [facility] Last Admin: 06/16/22 07:27 Dose: Not Given Losartan Potassium (Losartan 50 Mg Tablet) 100 mg PO [facility] Last Admin: 06/15/22 20:33 Dose: Not Given Morphine Sulfate (Morphine 4 Mg/Ml Vial) 4 mg IV Q4HP PRN; Protocol PRN Reason: Per Pain Protocol Last Admin: 06/14/22 16:56 Dose: 4 mg Naloxone HCl (Naloxone Hcl 0.4 Mg/Ml Vial) 0.1 mg IV Q2MIN PRN PRN Reason: Opiate Reversal Ondansetron HCl (Ondansetron 4 Mg/2 Ml Vial) 4 mg IV Q6HP PRN PRN Reason: Nausea And Vomiting Last Admin: 06/14/22 17:02 Dose: 4 mg Oxycodone/Acetaminophen (Oxycodone/Apap 5/325mg Tablet) 1 tab PO Q4HP PRN; Protocol PRN Reason: Per Pain Protocol Last Admin: 06/16/22 02:42 Dose: 1 tab Promethazine HCl (Promethazine 25 Mg/Ml Vial) 12.5 mg IM Q6HP PRN; Protocol PRN Reason: Nausea And Vomiting Senna (Sennosides 1 Tablet) 2 tab PO [facility] Last Admin: 06/15/22 20:32 Dose: 2 tab Sodium Chloride (0.9 % Sodium Chloride 10 Ml Syringe) 10 ml IV Q8 [facility] Last Admin: 06/16/22 06:33 Dose: Not Given A/P Assessment and plan (1) Pancreatitis: Status: Acute (2) Paroxysmal atrial fibrillation: Status: Chronic (3) Hypertension: Status: Chronic Qualifiers: Hypertension type: essential hypertension Qualified Code(s): I10 - Essential (primary) hypertension (4) Depression: Status: Chronic Qualifiers: Depression Type: major depressive disorder Major depression recurrence: recurrent Active/Remission status: in full remission Qualified Code(s): F33.42 - Major depressive disorder, recurrent, in full remission Narrative A/P Narrative: Assessment and Plans: 1. Acute pancreatitis: Inpatient med surg; pending hospital to hospital transfer for GI specialist consultations and potential endoscopic ultrasound to evaluate any source of obstructions causing dilated intra and extrahepatic bile ducts. Clear liquid diet NS@75cc/hr Zofran Phenergan Percocet Morphine Toradol 2. Essential hypertension: Currently normotensive Symptoms control as above Diltiazem Losartan 3. Depression: Fluoxetine 4. Proximal atrial fibrillation: Diltiazem No therapeutic anticoagulations for possible impending surgery GI ppx: not currently indicated DVT ppx: Lovenox Code status: Full Prognosis: Stable Disposition: inpatient med surg; pending hospital transfer to potential EUS Time Spent With Patient Time: Total time spent is greater than 50% in coordination of care (as documented) at patient's floor/unit and/or counseling patient: Subsequent: Total time with patient: 35 - 49 minutes
[2022-06-16] MEDS: FLUoxetine HCL 20 MG CAPSULE PO SCH (10:00)
[2022-06-16] MEDS: DOCUSATE SODIUM 100 MG CAPSULE PO SCH ×2 (10:00→21:27)
[2022-06-16] MEDS: ENOXAPARIN 40 MG/0.4 ML SYRINGE SQ SCH (10:01)
[2022-06-16] MEDS: LOSARTAN 50 MG TABLET PO SCH (21:25)
[2022-06-16] MEDS: DILTIAZEM 180 MG CAP.XL.24H PO SCH (21:25)
[2022-06-16] MEDS: SENNOSIDES 1 TABLET PO SCH (21:27)
[2022-06-17] MEDS: 0.9 % SODIUM CHLORIDE 1,000 ML IV SCH ×2 (00:50→08:18)
[2022-06-17] MEDS: 0.9 % SODIUM CHLORIDE 10 ML SYRINGE IV SCH (05:31)
[2022-06-17] MEDS: DOCUSATE SODIUM 100 MG CAPSULE PO SCH (08:17)
[2022-06-17] MEDS: FLUoxetine HCL 20 MG CAPSULE PO SCH (08:17)
[2022-06-17] MEDS: ENOXAPARIN 40 MG/0.4 ML SYRINGE SQ SCH (08:17)
[2022-06-17 09:57] LABS: Amylase 60 U/L (28-100)
[2022-06-17] MEDS: ACETAMINOPHEN 325 MG TABLET PO PRN (10:51)
--- NOTE | 2022-06-17 11:57 | Discharge Summary ---
Discharge Provider Provider IMPORTANT FOLLOW-UP INFORMATION FOR PCP: Patient information: Note initiated : 06/17/22 at 11:53 am Service Date, if different from initiated Date: [] Patient: Gardenia Mike 67 y/o F admitted on 06/14/22 for abdominal pain. Chief Complaint: [] Date of admission: 06/14/22 00:14 Discharge date: 06/17/22 Primary care physician: Brannon Caicedo DO Attending physician on admission: Reid Delarosa Consults: 06/13/22 Consult to Physician [CONS] Stat Comment: Consulting Provider: Reid Delarosa Reason For Exam: Physician to Consult 06/14/22 08:52 Consult to Physician [CONS] Routine Comment: Consulting Provider: David Horan Reason For Exam: Physician to Consult Attending physician on discharge: Chi Yarely Pui COURSE Hospital Course Hospital course: Patient was admitted on June 14, 2022 for pancreatitis. Abdominal ultrasound followed by CT of the abdomen pelvis showing dilated bile duct and dilated pancreatic duct with no obstructing stone seen. Symptoms medic controlled with IV fluid, narcotics and antiemetics were all provided for the patient's. She was initially placed on bowel rest and was being advanced to clear liquid diet for which she tolerated. GI doctor consulted who recommended EUS/ERCP. Unfortunately, dosed procedures were not available in the hospital. I spoke with GI specialist from [facility] who recommend the patient to come in as an outpatient basis for those recommended procedures. Patient's symptoms greatly improved on June 17, 2022, and the decision was made to discharge her with arrangement for a set appointment made for her. Prescriptions sent to her pharmacy/given. All questions were answered prior to patient being physically discharged. Discharge diagnosis: Pancreatitis Time Spent with Patient Time attestation: Total time spent providing and/or coordinating discharge services: Time spent: Greater than 30 minutes EXAM Constitutional Vitals: Temp Pulse Resp BP Pulse Ox O2 Del Method 37.2 C 81 20 155/85 96 06/17/22 09:20 06/17/22 09:20 06/17/22 09:20 06/17/22 09:20 06/17/22 09:20 06/17/22 09:20 General appearance: cooperative and no acute distress Head Head exam: Present atraumatic and normocephalic Eye Eye exam: Present EOMI and PERRL ENT ENT exam: Present mucous membranes moist, normal exam and normal external ear exam Neck Neck exam: Present normal inspection; Absent lymphadenopathy, tenderness or thyromegaly Respiratory Respiratory exam: Absent accessory muscle use, respiratory distress or wheezes Cardiovascular Cardiovascular exam: Present normal rate and rhythm; Absent JVD GI/Abdominal GI/Abdominal exam: Present normal bowel sounds, soft and tenderness; Absent organomegaly Extremities Exam Extremities exam: Present full ROM, normal capillary refill and normal inspection; Absent tenderness Neurological Exam Neurological exam: Present alert, CN II-XII intact and oriented X3; Absent motor sensory deficit Psychiatric Psychiatric exam: Present normal affect and normal mood; Absent anxious or depressed Skin Skin exam: Present dry and intact Discharge Data Data Completed and Pending Labs on day of discharge: Labs from last 24 hours 06/17/22 06/17/22 06/17/22 09:08 09:08 09:08 Amylase 60 Lipase 72 H CA 19-9 Antigen Pending Miscellaneous Test Pending Discharge Plan Patient/Caregiver Discharge Instructions Activity: increase activity as tolerated Diet: Clear Liquid Prescriptions: New oxycodone-acetaminophen 5-325 mg Tablet 1 tab PO Q4-6HP PRN (Reason: Per Pain Protocol) Qty: 10 0RF ondansetron 4 mg tablet,disintegrating 4 mg PO Q8H PRN (Reason: nausea and vomiting) Qty: 10 0RF Continued methocarbamol 500 mg tablet 1,000 mg PO QHS PRN (Reason: Back spasm) Qty: 60 0RF fluoxetine 40 mg capsule 40 mg PO QDAY Qty: 90 3RF Zyrtec 10 mg Capsule 10 mg PO QDAY diltiazem HCl 180 mg capsule,extended release 24 hr 180 mg PO HS losartan 100 mg tablet 100 mg PO HS Follow Up Plan Follow up with: GI, [facility] [Other] Brannon Caicedo DO [Primary Care Provider] - Patient Disposition: Home, Self-Care Prognosis: Good Rehab Potential: Good I certify that the patient requires SNF services: No Overall status at discharge: patient is progressing back to baseline Discharge Orders: Discharge Order (Routine); Ordered 06/17/22 Ordered By: Kevin Tran
== END 2022-06-17 13:00 | disposition home or self-care (01) | DRG 440 ==
LOC: ED 19:40 → MEDSUR 06-14 00:14
PROVIDERS: ADMIT Student in an Organized Health Care Education/Training Program; ATTEND Internal Medicine